=== PATIENT | male | born 1995 | race American Indian/Alaskan Native ===

== ENCOUNTER 2017-12-06 11:30 | Emergency (ER) | payer MEDICAID ==
[2017-12-06] MEDS ORDERED: Sodium Chloride 0.9% 1,000 ML IV ONE ×2 (12:23→14:16)
--- NOTE | 2017-12-06 12:48 | C.PDOC ---
History Of Present Illness 22 y/o male presents to the ED with complaints of vomiting and diarrhea for the last 3 days. Patient is now developing a headache. States he did feel hungry this morning, tried to eat, and then had another episode of vomiting and 1 e pisode of diarrhea. Otherwise no fever, chills, dizziness, rectal bleeding, bloody stools, or other complaints. 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 and recently stopped Time Seen by Provider: 12/06/17 11:54 Chief Complaint (Nursing): Abdominal Pain History Per: Patient History/Exam Limitations: no limitations Onset/Duration Of Symptoms: Days Current Symptoms Are (Timing): Still Present Associated Symptoms: Vomiting, Diarrhea Past Medical History Reviewed: Historical Data, Nursing Documentation, Vital Signs Vital Signs: Last Vital Signs Temp 99.1 F 12/06/17 11:41 Pulse 95 H 12/06/17 11:41 Resp 18 12/06/17 11:41 BP 142/77 12/06/17 11:41 Pulse Ox 99 12/06/17 11:41 - Medical History PMH: No Chronic Diseases Surgical History: No Surg Hx Family History: States: No Known Family Hx - Social History Hx Tobacco Use: Yes Hx Alcohol Use: No Hx Substance Use: No - Immunization History Hx Tetanus Toxoid Vaccination: No Hx Influenza Vaccination: No Hx Pneumococcal Vaccination: No Review Of Systems Constitutional: Negative for: Fever, Chills Cardiovascular: Negative for: Palpitations Respiratory: Negative for: Shortness of Breath Gastrointestinal: Positive for: Vomiting, Diarrhea Genitourinary: Negative for: Dysuria, Frequency, Incontinence Neurological: Positive for: Headache. Negative for: Dizziness Physical Exam - Physical Exam Appears: Non-toxic, No Acute Distress Skin: Warm, Dry Head: Atraumatic, Normacephalic Eye(s): bilateral: Normal Inspection, PERRL, EOMI Oral Mucosa: Moist Neck: Normal ROM Chest: Symmetrical Cardiovascular: Rhythm Regular Respiratory: Normal Breath Sounds, No Accessory Muscle Use Gastrointestinal/Abdominal: Bowel Sounds (normal), Soft, No Tenderness, No Distention, No Guarding, No Rebound Back: No CVA Tenderness, No Vertebral Tenderness Extremity: Bilateral: Atraumatic, Normal ROM Pulses: Left Radial: Normal, Right Radial: Normal Neurological/Psych: Oriented x3, Normal Speech ED Course And Treatment - Laboratory Results Result Diagrams: 12/06/17 13:36 12/06/17 13:36 Lab Interpretation: Abnormal O2 Sat by Pulse Oximetry: 99 (RA) Pulse Ox Interpretation: Normal Progress Note: Treated with IVF NSS, pepcid and zofran. On re-evaluation abdomen soft non-tender. Patient requesting to be discharged, in no distress Reassessment Condition: Improved Medical Decision Making Medical Decision Making: Initial Plan: Blood work and urine sent. Zofran, Pepcid, and IV fluids administered. On further discussion patient reports using street drugs including fentanyl, which he recently stopped. Disposition Counseled Patient/Family Regarding: Studies Performed, Diagnosis, Need For Followup - Disposition Referrals: [facility] [Outside] [facility] [Outside] [facility] [Outside] [facility] [Outside] Disposition: HOSPITALIZED Disposition Time: 15:45 Condition: IMPROVED Instructions: Viral Gastroenteritis, Drug Abuse and Drug Addiction (DC) Forms: [employer] (Nepali) - POA Present On Arrival: None - Clinical Impression Clinical Impression: Vomiting, Diarrhea, Nausea, Opioid abuse - PA / ME[employer]ER / Resident Statement MD/DO has reviewed & agrees with the documentation as recorded. - Scribe Statement The provider has reviewed the documentation as recorded by the Scribe (Marti Benitez) All medical record entries made by the Scribe were at my direction and personall y dictated by me. I have reviewed the chart and agree that the record accurately reflects my personal performance of the history, physical exam, medical decision making, and the department course for this patient. I have also personally directed, reviewed, and agree with the discharge instructions and disposition.
[2017-12-06 13:44] LABS: BASO # 0.1 K/uL (0.0-0.2); BASO % 0.4 % (0.0-2.0); EOS # 0.3 K/uL (0.0-0.7); EOS % 1.6 % (0.0-4.0); HEMOGLOBIN 14.9 g/dL (12.0-18.0); LYMPH # 1.7 K/uL (1.0-4.3); LYMPH % 10.3 % (20.0-40.0); MEAN CELL VOLUME 86.8 fL (80.0-94.0); MEAN CORPUSCULAR HEMOGLOBIN 29.8 pg (27.0-31.0); MEAN CORPUSCULAR HGB CONC 34.3 g/dL (33.0-37.0); MEAN PLATELET VOLUME 9.4 fL (7.2-11.7); MONO # 1.5 K/uL (0.0-0.8); MONO % 9.6 % (0.0-10.0); NEUT # 12.5 K/uL (1.8-7.0); NEUT % 78.1 % (50.0-75.0); RBC 5.01 Mil/uL (4.40-5.90); RED CELL DISTRIBUTION WIDTH 12.7 % (11.5-14.5)
[2017-12-06 13:54] LABS: URINE BILIRUBIN NEGATIVE (NEGATIVE); URINE BLOOD NEGATIVE (NEGATIVE); URINE CLARITY Clear (Clear); URINE COLOR Yellow (YELLOW); URINE GLUCOSE (UA) NORMAL (Normal); URINE LEUKOCYTE ESTERASE NEG Leu/uL (Negative); URINE PROTEIN NEGATIVE (NEGATIVE); URINE UROBILINOGEN NORMAL mg/dL (0.2-1.0)
[2017-12-06 14:00] LABS: ALB/GLOB RATIO 1.4 (1.0-2.1); ALT/SGPT 21 U/L (21-72); AST/SGOT 19 U/L (17-59); BLOOD UREA NITROGEN 10 mg/dL (9-20); GFR NON-AFRICAN AMERICAN > 60
[2017-12-06] MEDS ORDERED: Sodium Chloride 0.9% 1,000 ML ONE (14:54)
[2017-12-06 15:44] VITALS: BP 140/82; PULSE 78; RESP 16; TEMP 99.7
[2017-12-06 17:47] VITALS: O2SAT 99
== END 2017-12-06 15:44 | disposition home or self-care (01) ==
LOC: C.ER 11:30
DX: R11.2 Nausea with vomiting, unspecified (principal); R19.7 Diarrhea, unspecified; F11.10 Opioid abuse, uncomplicated
CPT/HCPCS: 80053; 81001; 85025; 96361; 96374; 96375; 99284; J2405; J7030